=== PATIENT | male | born 1955 | race Two or more races ===

== ENCOUNTER 2024-09-25 10:24 | Emergency (ER) | payer MEDICARE, MEDICAID ==
[~2024-09-25] VITALS: Ht 170.2 cm; Wt 93.1 kg
--- NOTE | 2024-09-25 11:00 | ED.PDOC ---
History of Present Illness HPI Comments 69 year old male with a Hx of Arthritis presents to the ED for the c/c of 05/29 Face pain and Swelling that stated Post Allergic Reaction. Pt states that pain and swelling started 4x days ago, located to right side of his forehead, extending to the Right Parietal area of the head. No other associated modifiers, recent travel, or symptoms at this time. Denies that the rash is painful, just itchy and stinging Denies ever having this before Patient denies any fever, cough, difficulty swallowing, or shortness of breath Denies fever chills night sweats nausea vomiting diarrhea Denies persistent loss of appetite nor unintentional weight loss over the past 3 months Denies history of STI Denies cough and cold-like symptoms Denies recent travel Denies sick contact with similar rash Denies new topical creams/lotions/shampoos/detergents Denies noticing any insects Denies bruising bleeding anywhere Denies chronic skin issues or family history of skin issues Chief Complaint: Face pain Time Seen by MD: 10:56 Primary Care Provider: UNKNOWN Reviewed Notes: Nurses Notes, Medications, Allergies Allergies: Coded Allergies: NO KNOWN ALLERGIES (Unverified , 09/25/24) Home Meds Active Scripts Valacyclovir Hcl (Valtrex) 1 Gm Tab, 1 TAB PO TID for 7 Days, #21 TAB 0 Refills Prov:HAWK GARG NP 09/25/24 Methylprednisolone (Medrol Dosepak) 4 Mg Ac, 4 MG PO UD, #21 TAB 0 Refills UAD Prov:HAWK GARG NP 09/25/24 Information Source: Patient Mode of Arrival: Ambulatory Severity: Moderate Timing: Days Duration: Since onset, Days Prehospital treatment: None Past Medical History PAST MEDICAL HISTORY: Arthritis Surgical History: Unknown Family History Family History: Unknown Social History Smoker: Non-Smoker Alcohol: Denies ETOH Use Drugs: Denies Drug Use Lives In: Home Constitutional: denies: chills, diaphoresis, fatigue, fever, malaise, sweats, weakness, others EENTM: reports: others (face pain); denies: blurred vision, double vision, ear bleeding, ear discharge, ear drainage, ear pain, ear ringing, eye pain, eye redness, hearing loss, mouth pain, mouth swelling, nasal discharge, nose bleeding, nose congestion, nose pain, photophobia, tearing, throat pain, throat swelling, voice changes Respiratory: denies: cough, hemoptysis, orthopnea, SOB at rest, shortness of breath, SOB with excertion, stridor, wheezing, others Cardiovascular: denies: chest pain, dizzy spells, diaphoresis, Dyspnea on exertion, edema, irregular heart beat, left arm pain, lightheadedness, palpitations, PND, syncope, others Gastrointestinal: denies: abdomen distended, abdominal pain, blood streaked bowels, constipated, diarrhea, dysphagia, difficulty swallowing, hematemesis, melena, nausea, poor appetite, poor fluid intake, rectal bleeding, rectal pain, vomiting, others Genitourinary: denies: burning, dysuria, flank pain, frequency, hematuria, incontinence, penile discharge, penile sore, pain, testicle pain, testicle swelling, urgency, others Neurological: denies: dizziness, fainting, headache, left sided numbness, left sided weakness, numbness, paresthesia, pre-existing deficit, right sided numbness, right sided weakness, seizure, speech problems, tingling, tremors, weakness, others Musculoskeletal: denies: back pain, gout, joint pain, joint swelling, muscle pain, muscle stiffness, neck pain, others Integumetry: reports: rash; denies: bruises, change in color, change in hair/nails, dryness, laceration, lesions, lumps, wounds, others Allergic/Immunocompromised: denies: Difficulty Healing, Frequent Infections, Hives, Itching, others Hematologic/Lymphatic: denies: anemia, blood clots, easy bleeding, easy bruising, swollen glands, others Endocrine: denies: excessive hunger, excessive sweating, excessive thirst, excessive urination, flushing, intolerance to cold, intolerance to heat, unexplained weight gain, unexplained weight loss, others Psychiatric: denies: anxiety, bipolar disorder, depression, hopeless, panic disorder, schizophrenia, sleepless, suicidal, others All Other Systems: Reviewed and Negative Physical Exam General Appearance: Mild Distress, Normal, Obese HEENT: Head (Right sided vesiciullar rash, some noticible pustules, some scaring. ), Normal ENT Inspection, Pharynx Normal, TMs Normal Neck: Full Range of Motion, Non-Tender, Normal, Normal Inspection Respiratory: Chest Non-Tender, Lungs Clear, No Accessory Muscle Use, No Respiratory Distress, Normal Breath Sounds Cardiovascular: No Edema, No JVD, No Murmur, No Gallop, Normal Peripheral Pulses, Regular Rate/Rhythm Breast Exam: Deferred Gastrointestinal: No Organomegaly, Non Tender, No Pulsatile Mass, Normal Bowel Sounds, Soft Genitalia: Deferred Pelvic: Deferred Rectal: Deferred Extremities: No calf tenderness, Normal capillary refill, Normal inspection, Normal range of motion, Non-tender, No pedal edema Musculoskeletal : Apperance: Normal Neurologic: Alert, spinning bath person II-XII nml as Tested, No Motor Deficits, Normal Affect, Normal Mood, No Sensory Deficits Cerebellar Function: Normal Reflexes: Normal Skin: Dry, Normal Color, Warm Lymphatic: No Adenopathy Was a procedure done? Was a procedure done?: No Images 1 - Right sided vesiciullar rash, some noticible pustules, some scaring. 1 - No signs of conjunctival injection. EOMs intact. PERRLA. No foreign body with lid eversion. Differential Dx Considerations may include: Atopic dermatitis, herpes zoster, urticaria X-Ray, Labs, Meds, VS Vital Signs Date Time Temp Pulse Resp B/P (MAP) Pulse Ox O2 Delivery O2 Flow Rate FiO2 09/25/24 11:51 65 16 98 Room Air 09/25/24 11:51 98.4 65 16 138/66 (90) 98 98.4 09/25/24 10:45 98.3 72 16 149/87 (107) 97 98.3 Lab Test 09/25/24 11:53 09/25/24 11:31 Range/Units Urine Color Light-yellow Yellow Urine Clarity Clear Clear Urine pH 7.0 5.0-9.0 Urine Specific [place] 1.019 1.001-1.035 Urine Protein Negative Negative Urine Ketones Negative Negative Urine Blood Negative Negative /uL Urine Nitrite Negative Negative Urine Bilirubin Negative Negative Urine Urobilinogen Normal Negative mg/dL Urine Leukocyte Esterase Negative Negative /uL Urine RBC 1 0 - 3 /hpf Urine Microscopic WBC < 1 0-3 /HPF Urine Squamous Epithelial Cells Few <5 /hpf Urine Bacteria Few H None Seen /hpf Urine Glucose Normal Normal mg/dL White Blood Count 3.9 L 4.4-10.8 10^3/uL Red Blood Count 4.86 4.5-5.90 10^6/uL Hemoglobin 15.3 13.5-17.5 g/dL Hematocrit 44.3 41.0-53.0 % Mean Corpuscular Volume 91.1 80.0-100.0 fL Mean Corpuscular Hemoglobin 31.4 28.0-32.0 pg Mean Corpuscular Hemoglobin Concent 34.5 32.0-36.0 g/dL Red Cell Distribution Width 13.0 11.8-14.3 % Platelet Count 162 140-450 10^3/uL Mean Platelet Volume 8.1 6.9-10.8 fL Neutrophils (%) (Auto) 62.8 37.0-80.0 % Lymphocytes (%) (Auto) 24.7 10.0-50.0 % Monocytes (%) (Auto) 10.4 0.0-12.0 % Eosinophils (%) (Auto) 1.3 0.0-7.0 % Basophils (%) (Auto) 0.8 0.0-2.0 % Neutrophils # (Auto) 2.5 1.6-8.6 10 ^3/uL Lymphocytes # (Auto) 1.0 0.4-5.4 10 ^3/uL Monocytes # (Auto) 0.4 0-1.3 10 ^3/uL Eosinophils # (Auto) 0.1 0-0.8 10 ^3/uL Basophils # (Auto) 0 0-0.2 10 ^3/uL Nucleated Red Blood Cells 0.2 % Sodium Level 139 136-145 mmol/L Potassium Level 4.4 3.5-5.1 mmol/L Chloride Level 106 98-107 mmol/L Carbon Dioxide Level 25 20-31 mmol/L Anion Gap 8 5-15 Blood Urea Nitrogen 14 9-23 mg/dL Creatinine 0.80 0.700-1.30 mg/dL Glomerular Filtration Rate Calc 96 >90 mL/min BUN/Creatinine Ratio 17.5 10.0-20.0 Serum Glucose 88 74-106 mg/dL Calcium Level 9.8 8.7-10.4 mg/dL X-Ray, Labs, Meds, VS Comment 69 year old male with a Hx of Arthritis presents to the ED for the c/c of 3/10 Face pain and Swelling that stated Post Allergic Reaction. Patient arrives alert and oriented, ABC's intact, afebrile, vital signs stable, saturating well in room air CBC was ordered to exclude anemia, blood loss, or infection. BMP was ordered to exclude electrolyte abnormalities, renal failure, dehydration, hyperglycemia Urinalysis was ordered to rule out UTI or hematuria. Patient was given:Benadryl, Famotidine, Solimedral_. Tolerated medications with no adverse reaction. Healing of lesions may take 4 or more weeks[4] History of physical exam consistent with shingles Take antiviral medication as prescribed Keep skin clean and dry to reduce bacterial superinfection Consider cool astringent soaks Skin lesions usually within 2 to 4 weeks, but complete healing may take 1 to 4 weeks On reevaluation, patient had symptomatic improvement. Patient is stable for discharge at this time. External notes reviewed. Test results and diagnostic imaging interpreted. All diagnostic findings, discharge care, education and instructions provided Follow-up with PCP in 2 to 3 days Patient verbalized understanding and agreed to treatment plan Vital signs stable, afebrile, no acute distress noted Patient ambulatory with strong steady gait Advised to return precautions for any new or worsening symptoms, return to ER immediately for re-evaluation Patient is aware that the purpose of this visit was for an acute medical emergency requiring emergent stabilization. Chronic conditions, including malignancies have not been ruled out. Patient is instructed to follow up with PCP as directed and discharge instructions for continued care and workup. If unable to arrange follow-up, patient is to return to the emergency department for reassessment. Patient (parent or legal guardian if applicable) was given verbal and written discharge instructions and acknowledges understanding. Additional MDM Review of External, Non-ED records: External records reviewed. Discussion with independent historian (EMS, family) history obtained from the patient/parents (if applicable) at bedside Chronic conditions affecting care: None Social determinants of health affecting care: None Time of 1ST Reevaluation: 11:26 Reevaluation 1ST: Unchanged Patient Education/Counseling: Diagnosis, Treatment Family Education/Counseling: Diagnosis, Treatment SEPSIS Sepsis Screen Date sepsis recognized/suspect: Sep 25, 2024 Time Sepsis recognized/suspect: 103 Recent Procedure: No On Antibiotic Therapy: No Respiratory Rate >20: No Heart Rate >90: No Temp<36 C (96.8 F) or >38.3 C: No SBP <90 or MAP <65 mmHG: No New Acute Mental Status Change: No Is the patient on CPAP, BIPAP,: No Physician Orders Heplock Iv (09/25/24 ) Vital Signs Date Time Temp Pulse Resp B/P (MAP) Pulse Ox O2 Delivery O2 Flow Rate FiO2 09/25/24 11:51 65 16 98 Room Air 09/25/24 11:51 98.4 65 16 138/66 (90) 98 98.4 09/25/24 10:45 98.3 72 16 149/87 (107) 97 98.3 Laboratory Tests Test 09/25/24 11:31 White Blood Count 3.9 10^3/uL (4.4-10.8) L Departure 1 Departure Time of Disposition: 13:05 Impression: Primary Impression: Shingles Qualified Codes: B02.9 - Zoster without complications Disposition: HOME / SELF CARE / HOMELESS Condition: Stable e-Prescriptions Valacyclovir Hcl (Valtrex) 1 Gm Tab 1 TAB PO TID for 7 Days, #21 TAB 0 Refills Prov: HAWK GARG NP 09/25/24 Methylprednisolone (Medrol Dosepak) 4 Mg Ca 4 MG PO UD, #21 TAB 0 Refills UAD Prov: HAWK GARG SOCIAL WELFARE CLERK 09/25/24 Critical Care Note Critical Care Time?: No Stability Stability form required: No Heart Score Heart Score: Heart Score Response (Comments) Value History N/A 0 EKG N/A 0 Age N/A 0 Risk Factors N/A 0 Troponin N/A 0 Total 0 I personally scribed for HAWK GARG SOCIAL WELFARE CLERK ([email or web address]) on 09/25/24 at 11:00. Electronically submitted by Irvin Sandoval ([employer]). I personally scribed for HAWK GARG SOCIAL WELFARE CLERK ([email or web address]) on 09/25/24 at 11:16. Electronically submitted by Irvin Sandoval ([employer]). I personally scribed for HAWK GARG SOCIAL WELFARE CLERK ([email or web address]) on 09/25/24 at 11:26. Electronically submitted by Irvin Sandoval ([employer]). I personally scribed for HAWK GARG SOCIAL WELFARE CLERK ([email or web address]) on 09/25/24 at 11:27. Electronically submitted by Irvin Sandoval ([employer]). I personally scribed for HAWK GARG SOCIAL WELFARE CLERK ([email or web address]) on 09/25/24 at 11:28. Electronically submitted by Irvin Sandoval ([email or web address]). I personally scribed for HAWK GARG NP ([email or web address]) on 09/25/24 at 11:38. Electronically submitted by Irvin Sandoval ([email or web address]). HAWK GARG NP Sep 25, 2024 11:00
[2024-09-25 11:51] VITALS: BP 138/66; PULSE 65; RESP 16; TEMP 98.4; O2SAT 98
[2024-09-25 11:52] LABS: Hematocrit 44.3 % (41.0-53.0); Hemoglobin 15.3 g/dL (13.5-17.5); Mean Corpuscular Hemoglobin 31.4 pg (28.0-32.0); Mean Corpuscular Volume 91.1 fL (80.0-100.0); Nucleated Red Blood Cells % 0.2 %
[2024-09-25] MEDS: diphenhdrAMINE HCL 25 MG CAP PO ONE (11:54)
[2024-09-25] MEDS: methylPREDNISolone SOD SUCC 125 MG/2 ML VL IM ONE (11:54)
[2024-09-25] MEDS: FAMOTIDINE 20 MG TAB PO ONE (11:54)
[2024-09-25 12:07] LABS: Anion Gap 8 (5-15); Carbon Dioxide 25 mmol/L (20-31); Chloride 106 mmol/L (98-107); Potassium 4.4 mmol/L (3.5-5.1); Sodium 139 mmol/L (136-145)
[2024-09-25 12:08] LABS: Calcium 9.8 mg/dL (8.7-10.4)
[2024-09-25 12:12] LABS: Glucose 88 mg/dL (74-106)
[2024-09-25 12:13] LABS: BUN/Creatinine Ratio 17.5 (10.0-20.0); Blood Urea Nitrogen 14 mg/dL (9-23)
[2024-09-25 12:30] LABS: Urine Protein, UAD Negative (Negative)
[2024-09-25] MEDS ORDERED: VALA1TAB PO (13:07)
[2024-09-25] MEDS ORDERED: METH4PAK PO (13:07)
== END 2024-09-25 13:18 | disposition home or self-care (01) ==
LOC: ER 10:24
DX: B02.9 Zoster without complications (principal); M19.90 Unspecified osteoarthritis, unspecified site
CPT/HCPCS: 36415; 80048; 81001; 85025; 96372; 99283; J2919

== ENCOUNTER 2024-10-11 11:02 | Inpatient (IN) | payer OTHER, MEDICAID ==
[~2024-10-11] VITALS: Ht 165.1 cm; Wt 90.8 kg
[~2024-10-11 11:02] MED LIST: METH4PAK PO; VALA1TAB PO
--- NOTE | 2024-10-11 11:43 | ED.PDOC ---
History of Present Illness HPI Comments 69-year-old male who is Syriac-speaking presents the ear with prior medical history of arthritis in the chief complaint of face pain. Patient reports on being in the ER 15 years ago for having shingles for which subsided, patient states on having shingles again for the past four days with a headache, right- sided neck pain, right frontal hematoma and right face hematoma. Patient Does have in abrasion on the right side of his forehead. Denies chills, fever, N/V/D, SOB, CP. No other associated symptoms, modifiers, recent injuries or sick contacts present at this time. Time Seen by MD: 11:35 Primary Care Provider: UNKNOWN Reviewed Notes: Nurses Notes, Medications, Allergies Allergies: Coded Allergies: NO KNOWN ALLERGIES (Unverified , 09/25/24) Home Meds Active Scripts Valacyclovir Hcl (Valtrex) 1 Gm Tab, 1 TAB PO TID for 7 Days, #21 TAB 0 Refills Prov:AHWK GARG NP 09/25/24 Methylprednisolone (Medrol Dosepak) 4 Mg Ac, 4 MG PO UD, #21 TAB 0 Refills UAD Prov:HAWK GARG NP 09/25/24 Information Source: Patient Mode of Arrival: Ambulatory Severity: Moderate Timing: Days Duration: Since onset, Days Prehospital treatment: None Past Medical History PAST MEDICAL HISTORY: Arthritis Past Medical History (Other): History of shingles Surgical History: Unknown Family History Family History: Reviewed,noncontributory to illness, Unknown Social History Smoker: Non-Smoker Alcohol: Denies ETOH Use Drugs: Denies Drug Use Lives In: Home Constitutional: denies: chills, diaphoresis, fatigue, fever, malaise, sweats, weakness, others EENTM: reports: eye pain; denies: blurred vision, double vision, ear bleeding, ear discharge, ear drainage, ear pain, ear ringing, eye redness, hearing loss, mouth pain, mouth swelling, nasal discharge, nose bleeding, nose congestion, nose pain, photophobia, tearing, throat pain, throat swelling, voice changes, others Respiratory: denies: cough, hemoptysis, orthopnea, SOB at rest, shortness of breath, SOB with excertion, stridor, wheezing, others Cardiovascular: denies: chest pain, dizzy spells, diaphoresis, Dyspnea on exertion, edema, irregular heart beat, left arm pain, lightheadedness, palpitations, PND, syncope, others Gastrointestinal: denies: abdomen distended, abdominal pain, blood streaked bowels, constipated, diarrhea, dysphagia, difficulty swallowing, hematemesis, melena, nausea, poor appetite, poor fluid intake, rectal bleeding, rectal pain, vomiting, others Genitourinary: denies: burning, dysuria, flank pain, frequency, hematuria, incontinence, penile discharge, penile sore, pain, testicle pain, testicle swelling, urgency, others Neurological: reports: headache; denies: dizziness, fainting, left sided numbness, left sided weakness, numbness, paresthesia, pre-existing deficit, right sided numbness, right sided weakness, seizure, speech problems, tingling, tremors, weakness, others Musculoskeletal: reports: neck pain (Right-sided); denies: back pain, gout, joint pain, joint swelling, muscle pain, muscle stiffness, others Integumetry: denies: bruises, change in color, change in hair/nails, dryness, laceration, lesions, lumps, rash, wounds, others Allergic/Immunocompromised: denies: Difficulty Healing, Frequent Infections, Hives, Itching, others Hematologic/Lymphatic: denies: anemia, blood clots, easy bleeding, easy bruising, swollen glands, others Endocrine: denies: excessive hunger, excessive sweating, excessive thirst, excessive urination, flushing, intolerance to cold, intolerance to heat, unexplained weight gain, unexplained weight loss, others Psychiatric: denies: anxiety, bipolar disorder, depression, hopeless, panic disorder, schizophrenia, sleepless, suicidal, others All Other Systems: Reviewed and Negative Physical Exam General Appearance: Moderate Distress, Normal HEENT: Normal ENT Inspection, Pharynx Normal, TMs Normal Neck: Full Range of Motion, Non-Tender, Normal, Normal Inspection Respiratory: Chest Non-Tender, Lungs Clear, No Accessory Muscle Use, No Resp iratory Distress, Normal Breath Sounds Cardiovascular: No Edema, No JVD, No Murmur, No Gallop, Normal Peripheral Pulses, Regular Rate/Rhythm Breast Exam: Deferred Gastrointestinal: No Organomegaly, Non Tender, No Pulsatile Mass, Normal Bowel Sounds, Soft Genitalia: Deferred Pelvic: Deferred Rectal: Deferred Extremities: No calf tenderness, Normal capillary refill, Normal inspection, Normal range of motion, Non-tender, No pedal edema Musculoskeletal : Apperance: Normal Neurologic: Alert, salvager II-XII nml as Tested, No Motor Deficits, Normal Affect, Normal Mood, No Sensory Deficits Cerebellar Function: Normal Reflexes: Normal Skin: Dry, Normal Color, Rash (Right facial), Warm Peripheral Pulses: 3+ Radial (R), 3+ Radial (L) Lymphatic: No Adenopathy Was a procedure done? Was a procedure done?: No Differential Dx Considerations may include: Herpes zoster Cellulitis X-Ray, Labs, Meds, VS Vital Signs Date Time Temp Pulse Resp B/P (MAP) Pulse Ox O2 Delivery O2 Flow Rate FiO2 10/11/24 11:21 99.3 72 20 131/80 (97) 94 99.3 Lab Test 10/11/24 11:54 10/11/24 11:37 Range/Units White Blood Count 5.2 4.4-10.8 10^3/uL Red Blood Count 4.72 4.5-5.90 10^6/uL Hemoglobin 15.1 13.5-17.5 g/dL Hematocrit 43.6 41.0-53.0 % Mean Corpuscular Volume 92.4 80.0-100.0 fL Mean Corpuscular Hemoglobin 32.1 H 28.0-32.0 pg Mean Corpuscular Hemoglobin Concent 34.7 32.0-36.0 g/dL Red Cell Distribution Width 13.5 11.8-14.3 % Platelet Count 192 140-450 10^3/uL Mean Platelet Volume 8.2 6.9-10.8 fL Neutrophils (%) (Auto) 53.2 37.0-80.0 % Lymphocytes (%) (Auto) 34.1 10.0-50.0 % Monocytes (%) (Auto) 9.5 0.0-12.0 % Eosinophils (%) (Auto) 1.9 0.0-7.0 % Basophils (%) (Auto) 1.3 0.0-2.0 % Neutrophils # (Auto) 2.8 1.6-8.6 10 ^3/uL Lymphocytes # (Auto) 1.8 0.4-5.4 10 ^3/uL Monocytes # (Auto) 0.5 0-1.3 10 ^3/uL Eosinophils # (Auto) 0.1 0-0.8 10 ^3/uL Basophils # (Auto) 0.1 0-0.2 10 ^3/uL Nucleated Red Blood Cells 0.1 % Sodium Level 138 136-145 mmol/L Potassium Level 4.2 3.5-5.1 mmol/L Chloride Level 104 98-107 mmol/L Carbon Dioxide Level 25 20-31 mmol/L Anion Gap 9 5-15 Blood Urea Nitrogen Pending Creatinine Pending Glomerular Filtration Rate Calc Pending BUN/Creatinine Ratio Pending Serum Glucose Pending Calcium Level 10.1 8.7-10.4 mg/dL Urine Color Pending Urine Clarity Pending Urine pH Pending Urine Specific [place] Pending Urine Protein Pending Urine Ketones Pending Urine Blood Pending Urine Nitrite Pending Urine Bilirubin Pending Urine Urobilinogen Pending Urine Leukocyte Esterase Pending Urine RBC Pending Urine Microscopic WBC Pending Urine Squamous Epithelial Cells Pending Urine Bacteria Pending Urine Glucose Pending Current Medications Medications (Trade) Dose Ordered Sig/Douglas Route Start Time Stop Time Status Last Admin Ceftriaxone Sodium 50 ml @ 100 mls/hr ONCE ONCE IV 10/11/24 11:45 10/11/24 12:14 DC 10/11/24 12:09 Clindamycin Phosphate 50 ml @ 50 mls/hr ONCE ONCE IV 10/11/24 11:45 10/11/24 12:44 10/11/24 12:08 Methylprednisolone Sodium Succinate (Solu Medrol) 125 mg ONCE ONCE IV 10/11/24 11:45 10/11/24 11:46 DC 10/11/24 12:08 Patient alert pain Complaining of redness pain in the right side of the face along with headache. Vitals stable. Answering questions. Establish intravenous access. Was given steroid. Was given Rocephin. Was given clindamycin. Reviewed his previous visit. CT of the head reviewed does not show any acute changes. Explained to the patient. Continue monitoring. Time of 1ST Reevaluation: 12:05 Reevaluation 1ST: Unchanged Patient Education/Counseling: Diagnosis, Treatment, Prognosis Family Education/Counseling: No Family Present SEPSIS Sepsis Screen Physician Orders Urinalysis (10/11/24 11:37) Basic Metabolic Panel (10/11/24 11:37) Head Without Contrast (10/11/24 11:37) Clindamycin 300mg Iv (Cleocin Iv) (10/11/24 11:45) Vital Signs Date Time Temp Pulse Resp B/P (MAP) Pulse Ox O2 Delivery O2 Flow Rate FiO2 10/11/24 11:21 99.3 72 20 131/80 (97) 94 99.3 Laboratory Tests Test 10/11/24 11:54 White Blood Count 5.2 10^3/uL (4.4-10.8) Medications Medications Dose Ordered Sig/Douglas Route Start Time Stop Time Status Last Admin Dose Admin Ceftriaxone Sodium 50 ml @ 100 mls/hr ONCE ONCE IV 10/11/24 11:45 10/11/24 12:14 DC 10/11/24 12:09 Clindamycin Phosphate 50 ml @ 50 mls/hr ONCE ONCE IV 10/11/24 11:45 10/11/24 12:44 10/11/24 12:08 Methylprednisolone Sodium Succinate 125 mg ONCE ONCE IV 10/11/24 11:45 10/11/24 11:46 DC 10/11/24 12:08 Departure 1 Departure Time of Disposition: 12:38 Impression: Primary Impression: Facial cellulitis Additional Impression: Herpes zoster Qualified Codes: B02.9 - Zoster without complications Disposition: ADMITTED INPATIENT Admit to: Med Surg Condition: Guarded Critical Care Note Critical Care Time?: No Stability Stability form required: No Heart Score Heart Score: Heart Score Response (Comments) Value History N/A 0 EKG N/A 0 Age N/A 0 Risk Factors N/A 0 Troponin N/A 0 Total 0 I personally scribed for EDILSON MONTILLA MD ([email or web address]) on 10/11/24 at 11:43. Electronically submitted by Alexandro Keenan ([email or web address]). EDILSON MONTILLA MD Oct 11, 2024 11:43
[2024-10-11 12:00] VITALS: PULSE 74; RESP 20; O2SAT 96
[2024-10-11] MEDS: CLINDAMYCIN 300MG IV 50 ML IV ONE (12:08)
[2024-10-11] MEDS: methylPREDNISolone SOD SUCC 125 MG/2 ML VL IV ONE (12:08)
[2024-10-11] MEDS: cefTRIAXone 1GM/50ML D5W 50 ML IV ONE (12:09)
--- NOTE | 2024-10-11 12:15 | DVH ---
EXAM: CT HEAD WITHOUT CONTRAST HISTORY: headache COMPARISON: None TECHNIQUE: Noncontrast axial CT images of the head were performed. Sagittal and coronal reformatted i mages were obtained. This CT exam was performed using 1 or more of the following dose reduction techn iques: Automated exposure control, adjustment of the mA and/or kv according to patient size, or the u se of iterative reconstruction techniques. Radiation Dose: CTDI volume is 58.14 mGy. Dose-length product is 1144.05 mGy*cm FINDINGS: No intracranial hemorrhage, mass, midline shift, hydrocephalus, or evidence of acute large vessel inf arct. There is mucosal thickening in the bilateral maxillary and ethmoid sinuses. There may be an old healed fracture of the right orbital floor versus artifactual appearance. The bilateral mastoid air cells and middle ear spaces are clear. No cranial fracture or scalp edema. IMPRESSION: 1. No acute intracranial process. 2. Mild bilateral maxillary and ethmoid sinus disease.
[2024-10-11 12:22] LABS: Hematocrit 43.6 % (41.0-53.0); Hemoglobin 15.1 g/dL (13.5-17.5); Mean Corpuscular Hemoglobin 32.1 pg (28.0-32.0); Mean Corpuscular Volume 92.4 fL (80.0-100.0); Nucleated Red Blood Cells % 0.1 %
[2024-10-11 12:34] LABS: Chloride 104 mmol/L (98-107); Potassium 4.2 mmol/L (3.5-5.1)
[2024-10-11 12:35] LABS: Anion Gap 9 (5-15); Carbon Dioxide 25 mmol/L (20-31); Sodium 138 mmol/L (136-145)
[2024-10-11 12:36] LABS: Calcium 10.1 mg/dL (8.7-10.4)
[2024-10-11 12:41] LABS: Blood Urea Nitrogen 11 mg/dL (9-23); Glucose 110 mg/dL (74-106)
[2024-10-11 12:42] LABS: BUN/Creatinine Ratio 13.3 (10.0-20.0)
[2024-10-11 12:46] LABS: Urine Protein, UAD Negative (Negative)
--- NOTE | 2024-10-11 18:43 | DVHHP2 ---
Admitting Diagnosis: right facial pain History of Present Illness 69-year-old male who is [place]-speaking presents the ear with prior medical history of arthritis in the chief complaint of face pain. Patient reports on being in the ER 15 years ago for having shingles for which subsided, patient states on having shingles again for the past four days with a headache, right- sided neck pain, right frontal hematoma and right face hematoma. Patient Does have in abrasion on the right side of his forehead. Denies chills, fever, N/V/D, SOB, CP. No other associated symptoms, modifiers, recent injuries or sick contacts present at this time. PAST MEDICAL HISTORY: Arthritis Past Medical History (Other): History of shingles Surgical History: Unknown Family History Family History: Reviewed,noncontributory to illness, Unknown Social History Smoker: Non-Smoker Alcohol: Denies ETOH Use Drugs: Denies Drug Use Lives In: Home Allergies: Coded Allergies: NO KNOWN ALLERGIES (Unverified , 09/25/24) Home Meds Active Scripts Valacyclovir Hcl (Valtrex) 1 Gm Tab, 1 TAB PO TID for 7 Days, #21 TAB 0 Refills Prov:HAWK GARG NP 09/25/24 Methylprednisolone (Medrol Dosepak) 4 Mg Ac, 4 MG PO UD, #21 TAB 0 Refills UAD Prov:HAWK GARG NP 09/25/24 Vital Signs Vital Signs Date Time Temp Pulse Resp B/P (MAP) Pulse Ox O2 Delivery O2 Flow Rate FiO2 10/11/24 18:21 98.6 74 18 126/64 (84) 98 98.6 10/11/24 13:11 Room Air 10/11/24 12:00 0 21 Physical Exam gen: 69 yo. m, wn, wl, sitting on chair. No apparent distress HEENT-right frontal above eyes lesion. tender Heart-regular rate and rhythm Lungs clear to auscultate bilaterally Abdomen soft nontender nondistended Musculoskeletal-no edema cyanosis Neuro-AO x3, no focal deficits SEPSIS Sepsis Screen Date sepsis recognized/suspect: Oct 11, 2024 Time Sepsis recognized/suspect: 112 Recent Procedure: No On Antibiotic Therapy: No Respiratory Rate >20: No Heart Rate >90: No Temp<36 C (96.8 F) or >38.3 C: No SBP <90 or MAP <65 mmHG: No New Acute Mental Status Change: No Is the patient on CPAP, BIPAP,: No Physician Orders Head Without Contrast (10/11/24 11:37) Cardiac Diet-2gna,Lofat,Lochol (10/11/24 Dinner) Vital Signs Date Time Temp Pulse Resp B/P (MAP) Pulse Ox O2 Delivery O2 Flow Rate FiO2 10/11/24 18:21 98.6 74 18 126/64 (84) 98 98.6 10/11/24 15:28 98.1 71 16 153/76 (101) 96 98.1 10/11/24 13:11 98.9 67 18 142/83 (102) 93 98.9 10/11/24 13:11 67 18 93 Room Air 10/11/24 12:00 74 20 96 Room Air* 0 21 10/11/24 11:21 99.3 72 20 131/80 (97) 94 99.3 Laboratory Tests Test 10/11/24 11:54 White Blood Count 5.2 10^3/uL (4.4-10.8) Medications Medications Dose Ordered Sig/Douglas Route Start Time Stop Time Status Last Admin Dose Admin Ceftriaxone Sodium 50 ml @ 100 mls/hr ONCE ONCE IV 10/11/24 11:45 10/11/24 12:14 DC 10/11/24 12:09 Clindamycin Phosphate 50 ml @ 50 mls/hr ONCE ONCE IV 10/11/24 11:45 10/11/24 12:44 DC 10/11/24 12:08 Methylprednisolone Sodium Succinate 125 mg ONCE ONCE IV 10/11/24 11:45 10/11/24 11:46 DC 10/11/24 12:08 Results Labs Test 10/11/24 11:54 10/11/24 11:37 Range/Units White Blood Count 5.2 4.4-10.8 10^3/uL Red Blood Count 4.72 4.5-5.90 10^6/uL Hemoglobin 15.1 13.5-17.5 g/dL Hematocrit 43.6 41.0-53.0 % Mean Corpuscular Volume 92.4 80.0-100.0 fL Mean Corpuscular Hemoglobin 32.1 H 28.0-32.0 pg Mean Corpuscular Hemoglobin Concent 34.7 32.0-36.0 g/dL Red Cell Distribution Width 13.5 11.8-14.3 % Platelet Count 192 140-450 10^3/uL Mean Platelet Volume 8.2 6.9-10.8 fL Neutrophils (%) (Auto) 53.2 37.0-80.0 % Lymphocytes (%) (Auto) 34.1 10.0-50.0 % Monocytes (%) (Auto) 9.5 0.0-12.0 % Eosinophils (%) (Auto) 1.9 0.0-7.0 % Basophils (%) (Auto) 1.3 0.0-2.0 % Neutrophils # (Auto) 2.8 1.6-8.6 10 ^3/uL Lymphocytes # (Auto) 1.8 0.4-5.4 10 ^3/uL Monocytes # (Auto) 0.5 0-1.3 10 ^3/uL Eosinophils # (Auto) 0.1 0-0.8 10 ^3/uL Basophils # (Auto) 0.1 0-0.2 10 ^3/uL Nucleated Red Blood Cells 0.1 % Sodium Level 138 136-145 mmol/L Potassium Level 4.2 3.5-5.1 mmol/L Chloride Level 104 98-107 mmol/L Carbon Dioxide Level 25 20-31 mmol/L Anion Gap 9 5-15 Blood Urea Nitrogen 11 9-23 mg/dL Creatinine 0.83 0.700-1.30 mg/dL Glomerular Filtration Rate Calc 95 >90 mL/min BUN/Creatinine Ratio 13.3 10.0-20.0 Serum Glucose 110 H 74-106 mg/dL Calcium Level 10.1 8.7-10.4 mg/dL Urine Color Light-yellow Yellow Urine Clarity Clear Clear Urine pH 6.5 5.0-9.0 Urine Specific [place] 1.016 1.001-1.035 Urine Protein Negative Negative Urine Ketones Negative Negative Urine Blood Negative Negative /uL Urine Nitrite Negative Negative Urine Bilirubin Negative Negative Urine Urobilinogen Normal Negative mg/dL Urine Leukocyte Esterase Negative Negative /uL Urine RBC 1 0 - 3 /hpf Urine Microscopic WBC < 1 0-3 /HPF Urine Squamous Epithelial Cells None seen <5 /hpf Urine Bacteria None seen None Seen /hpf Urine Glucose Normal Normal mg/dL Primary Diagnosis Right frontal forehead herpes zoster possible cellulitis Plan Start 100 mg p.o. q.4 while awake 5 times daily for 7-10 days. Recommend vaccination after active shingles is resolved Start Ancef 1 g q.8h for possible cellulitis IV fluids Pain control Antiemetic Resume home meds Full code Lovenox for DVT prophylaxis No GI prophylaxis needed Regular diet Plan discussed with: Patient Problems List: (1) Facial cellulitis Status: Acute (2) Herpes zoster Status: Acute Date of Service: Oct 11, 2024 Billing Provider: ANAYELI JOHNSON MD Common Visit Codes: [id number] INP/OBS CARE (MOD) ANAYELI JOHNSON MD Oct 11, 2024 18:43
[2024-10-11] MEDS ORDERED: HYDROcodone-ACET 5/325MG TAB PO PRN (18:45)
[2024-10-11] MEDS ORDERED: DOCUSATE SOD 100 MG CAP PO PRN (18:45)
[2024-10-11] MEDS: ACYCLOVIR 400 MG TAB PO ONE (21:16)
[2024-10-11 21:24] VITALS: BP 163/93; PULSE 88; RESP 18; TEMP 97.6; O2SAT 96
[2024-10-11] MEDS: SODIUM CHLOR 0.9% PF (SALINE LOCK) 10ML VIAL/SYR IV SCH (23:31)
[2024-10-11] MEDS: ceFAZolin 1GM/50ML 50 ML IV SCH (23:31)
[2024-10-11] MEDS: ACETAMINOPHEN 325 MG TAB PO PRN (23:32)
[2024-10-12] VITALS (9 sets, daily range): BP systolic 113–163; BP diastolic 68–93; PULSE 70–88; RESP 17–18; TEMP 96.5–97.8; O2SAT 92–99
[2024-10-12] MEDS ORDERED: ACET1CAP14 PO (00:29)
[2024-10-12] MEDS ORDERED: IBUP200T76 PO (00:29)
[2024-10-12] MEDS: ACYCLOVIR 400 MG TAB PO SCH (06:34)
[2024-10-12 08:17] LABS: Hematocrit 48.1 % (41.0-53.0); Hemoglobin 16.7 g/dL (13.5-17.5); Mean Corpuscular Hemoglobin 32.1 pg (28.0-32.0); Mean Corpuscular Volume 92.6 fL (80.0-100.0); Nucleated Red Blood Cells % 0.0 %
[2024-10-12 08:27] LABS: Alanine Aminotransferase 29 U/L (7-40); Albumin 4.8 g/dL (3.2-4.8); Alkaline Phosphatase 107 U/L (46-116); Anion Gap 10 (5-15); BUN/Creatinine Ratio 16.3 (10.0-20.0); Blood Urea Nitrogen 13 mg/dL (9-23); Calcium 10.4 mg/dL (8.7-10.4); Carbon Dioxide 26 mmol/L (20-31); Chloride 102 mmol/L (98-107); Glucose 129 mg/dL (74-106); Potassium 4.1 mmol/L (3.5-5.1); Sodium 138 mmol/L (136-145); Total Protein 7.7 g/dL (5.7-8.2)
[2024-10-12 08:28] LABS: Bilirubin, Total 1.1 mg/dL (0.2-1.0)
[2024-10-12] MEDS: ENOXAPARIN SOD 40 MG/0.4 ML SYRINGE SC SCH (09:54)
--- NOTE | 2024-10-12 20:12 | DVHPN2 ---
Subjective Seen in bed redness in face improved Reviewed: H&P, Labs Changes from previous H/P or p: No Changes Objective Vitals Vital Signs Date Time Temp Pulse Resp B/P (MAP) Pulse Ox O2 Delivery O2 Flow Rate FiO2 10/12/24 17:00 97.6 70 18 113/68 (83) 95 97.6 10/12/24 08:00 Room Air* 0 21 Intake/Output Intake and Output 10/12/24 07:00 Intake Total 230 ml Balance 230 ml Intake Oral 80 ml IV Total 150 ml # Voids 2 # Bowel Movements 1 General Appearance: Alert, Oriented X3 HEENT: Atraumatic Cardiovascular: Regular rate, Normal S1, Normal S2 Abdomen: Normal bowel sounds Medications Current Medications Medications Dose Ordered Sig/Douglas Route Start Time Stop Time Status Last Admin Dose Admin Acyclovir 800 mg 5XD PO 10/12/24 06:00 10/12/24 17:18 800 MG Cefazolin Sodium 50 ml @ 100 mls/hr Q8H IV 10/11/24 22:00 10/12/24 14:55 100 MLS/HR Sodium Chloride 10 ml Q8HR IV 10/11/24 22:00 10/12/24 14:44 10 ML Docusate Sodium 100 mg BIDPRN PRN PO 10/11/24 18:45 Acetaminophen 650 mg Q6HP PRN PO 10/11/24 18:45 10/12/24 06:34 650 MG Acetaminophen/ Hydrocodone Bitart 1 tab Q4HP PRN PO 10/11/24 18:45 Enoxaparin Sodium 40 mg DAILY SC 10/12/24 10:00 10/12/24 09:54 40 MG Laboratory Results Laboratory Tests 10/12/24 06:10 Chemistry Test 10/12/24 06:10 Albumin 4.8 g/dL (3.2-4.8) Calcium Level 10.4 mg/dL (8.7-10.4) Total Protein 7.7 g/dL (5.7-8.2) LFT Test 10/12/24 06:10 Alanine Aminotransferase (ALT) 29 U/L (7-40) Alkaline Phosphatase 107 U/L (46-116) Aspartate Amino Transferase (AST) 21 U/L (13-40) Total Bilirubin 1.1 mg/dL (0.2-1.0) H Urinalysis Test 10/11/24 11:37 Urine Color Light-yellow (Yellow) Urine Clarity Clear (Clear) Urine pH 6.5 (5.0-9.0) Urine Specific [place] 1.016 (1.001-1.035) Urine Protein Negative (Negative) Urine Ketones Negative (Negative) Urine Blood Negative /uL (Negative) Urine Nitrite Negative (Negative) Urine Bilirubin Negative (Negative) Urine Urobilinogen Normal mg/dL (Negative) Urine Leukocyte Esterase Negative /uL (Negative) Urine RBC 1 /hpf (0 - 3) Urine Microscopic WBC < 1 /HPF (0-3) Urine Squamous Epithelial Cells None seen /hpf (<5) Urine Bacteria None seen /hpf (None Seen) Urine Glucose Normal mg/dL (Normal) Assessment/Plan Assessment/Plan Right frontal forehead herpes zoster possible cellulitis Continue IV abx oral acyclovir Plan discussed with: Patient Date of Service: Oct 12, 2024 Billing Provider: LILY GARZA MD Common Visit Codes: [id number] INP/OBS CARE(HIGH) LILY GARZA MD Oct 12, 2024 20:12
[2024-10-13 01:00] VITALS: BP 115/76; PULSE 68; RESP 16; TEMP 97.8; O2SAT 95
[2024-10-13 05:00] VITALS: BP 117/77; PULSE 57; RESP 16; TEMP 97.6; O2SAT 93
[2024-10-13 06:45] LABS: Hematocrit 42.5 % (41.0-53.0); Hemoglobin 14.5 g/dL (13.5-17.5); Mean Corpuscular Hemoglobin 31.9 pg (28.0-32.0); Mean Corpuscular Volume 93.4 fL (80.0-100.0); Nucleated Red Blood Cells % 0.4 %
[2024-10-13 07:00] LABS: Alanine Aminotransferase 20 U/L (7-40); Albumin 3.8 g/dL (3.2-4.8); Alkaline Phosphatase 82 U/L (46-116); Anion Gap 9 (5-15); BUN/Creatinine Ratio 17.1 (10.0-20.0); Bilirubin, Total 0.9 mg/dL (0.2-1.0); Blood Urea Nitrogen 14 mg/dL (9-23); Calcium 9.5 mg/dL (8.7-10.4); Carbon Dioxide 26 mmol/L (20-31); Chloride 104 mmol/L (98-107); Glucose 109 mg/dL (74-106); Potassium 3.9 mmol/L (3.5-5.1); Sodium 139 mmol/L (136-145); Total Protein 6.2 g/dL (5.7-8.2)
[2024-10-13 07:35] VITALS: PULSE 57; RESP 16; O2SAT 93
[2024-10-13 09:35] VITALS: BP 126/82; PULSE 53; RESP 17; TEMP 97.7; O2SAT 97
[2024-10-13 10:31] LABS: Hepatitis B Surface Antigen Negative (Negative); Hepatitis C Antibody Negative (Negative)
[2024-10-13 14:00] VITALS: BP 138/85; PULSE 57; RESP 17; TEMP 97.6; O2SAT 97
[2024-10-13] MEDS ORDERED: AUG875T PO (14:04)
[2024-10-13] MEDS ORDERED: ACYC1TAB2 PO (14:04)
[2024-10-13 14:48] VITALS: BP 138/85; PULSE 57; RESP 17; TEMP 97.6; O2SAT 97
== END 2024-10-13 15:50 | disposition home or self-care (01) | DRG 603 ==
LOC: ER 11:02 → OVERFLOW 18:38 → CENTRAL 21:24
PROVIDERS: ADMIT Hospitalist; ATTEND Hospitalist
DX: L03.211 Cellulitis of face (principal); B02.9 Zoster without complications; Z86.19 Personal history of other infectious and parasitic diseases
CPT/HCPCS: 36415; 70450; 80048; 80053; 81001; 85025; 86141; 86803; 87340; 96365; G0378; J3490